=== PATIENT | female | born 1995 | race Caucasian/White ===

== ENCOUNTER 2017-08-02 08:52 | Emergency (ER) | payer OTHER ==
--- NOTE | 2017-08-02 10:18 | RAD ---
INDICATION: Left knee pain after a fall COMPARISON: None TECHNIQUE: 4 view radiograph of the left knee. FINDINGS: The visualized bones are well-corticated and properly aligned. The joint spaces are properly maintained. There is a small intra-articular joint effusion seen on the lateral view radiograph. There is no acute fracture, dislocation or other focal bony abnormality. IMPRESSION: Small intra-articular left knee joint effusion without radiographically apparent bony abnormality. If the patient's symptoms persist, follow-up imaging is recommended.
[2017-08-02 11:24] VITALS: BP 120/70
--- NOTE | 2017-08-03 08:51 | ED ---
Lower Extremity - HPI Summary HPI Summary: Patient presents to the ED 1 day s/p left knee injury. States she fell off a raised object by 2 ft, but unsure how she fell and injured the knee. Denies other injuries including hitting her head or LOC. Endorses medial knee pain felt like a muscle strain, 8/10, worse with movement and better with rest. Worse with flexion, better in slightly flexed position. Denies other injuries. - History of Current Complaint Chief Complaint: EDExtremityLower Stated Complaint: FALL/LEFT KNEE INJURY Time Seen by Provider: 08/02/17 09:05 Hx Obtained From: Patient Mechanism Of Injury: Twisted Onset of Pain: Hours Onset/Duration: Hours Severity Initially: Moderate Severity Currently: Moderate Pain Intensity: 2 Pain Scale Used: 0-10 Numeric Timing: Constant Location: Is Discrete @ - left medial knee Associated Signs And Symptoms: Positive: Swelling Aggravating Factor(s): Standing, Ambulation Alleviating Factor(s): Rest Able to Bear Weight: No - Risk Factors Gout Risk Factors: Negative DVT Risk Factors: Negative Septic Arthritis Risk Factor: Negative PMH/Surg Hx/FS Hx/Imm Hx Previously Healthy: Yes - Immunization History Hx Pertussis Vaccination: No Immunizations Up to Date: Unable to Obtain/Confirm Infectious Disease History: No Infectious Disease History: Denies: Traveled Outside the [place] in Last 30 Days - Social History Occupation: Employed Part-time Lives: Dormitory/Roommates Alcohol Use: None Hx Substance Use: No Substance Use Type: Reports: None Hx Tobacco Use: No Smoking Status (MU): Never Smoked Tobacco Review of Systems Constitutional: Negative Negative: Fever, Chills, Fatigue Eyes: Negative Cardiovascular: Negative Gastrointestinal: Negative Genitourinary: Negative Positive: no symptoms reported, see HPI Positive: Arthralgia Skin: Negative Neurological: Negative All Other Systems Reviewed And Are Negative: Yes Physical Exam Triage Information Reviewed: Yes Vital Signs On Initial Exam: Initial Vitals Temp Pulse Resp BP Pulse Ox 98.9 F 102 20 121/79 98 08/02/17 09:24 08/02/17 09:24 08/02/17 09:24 08/02/17 09:24 08/02/17 09:24 Vital Signs Reviewed: Yes Appearance: Positive: Well-Appearing, Well-Nourished Skin: Positive: Warm, Skin Color Reflects Adequate Perfusion Head/Face: Positive: Normal Head/Face Inspection Eyes: Positive: EOMI, QUINTON, Conjunctiva Clear Neck: Positive: Supple, No Lymphadenopathy Respiratory/Lung Sounds: Positive: Clear to Auscultation, Breath Sounds Present Cardiovascular: Positive: Normal, RRR Musculoskeletal: Positive: Other - Thorough physical exam was performed, focusing on knee special tests. Pain on palpation over medial aspect and superior aspect of knee with mild amount of effusion. Due to patient pain around injury, physical exam was limited. Valgus and varus force without pain. No posterior sag sign, -posterior drawer test, - anterior drawer test. Quadriceps active test negative. Mcmurrys test not performed d/t patients instability. No laxity in the joint noted. No temperature change or pallor noted bilaterally. No ecchymosis noted over knee. No lesion or disruption of skin is seen. Unable to bear weight. Pulses intact bilaterally. Neurological: Positive: Speech Normal Psychiatric: Positive: Normal Diagnostics - Vital Signs Vital Signs Temp Pulse Resp BP Pulse Ox 08/02/17 11:23 98.8 F 86 20 120/70 99 08/02/17 09:24 98.9 F 102 20 121/79 98 - Laboratory Lab Statement: Any lab studies that have been ordered have been reviewed, and results considered in the medical decision making process. Lower Extremity Course/Dx - Course Course Of Treatment: Patient presents to the ED 1 day s/p left knee injury. States she fell off a raised object by 2 ft, but unsure how she fell and injured the knee. Denies other injuries including hitting her head or LOC. IMPRESSION: Small intra-articular left knee joint effusion without radiographically. apparent bony abnormality. Remains unable to bear weight. Patient sent to imaging. Soft tissue swelling noted over the knee. Knee immobilizer given. Follow up recommended and patient states her mother had just called to [facility] and will be seeing Dr Chacon on Saturday at 2pm. Crutches given. Encouraged Ibuprofen 600mg three times daily with meals for pain. Return precautions given. Educated patient regarding knee injuries and healing time and the possibility of further evaluation and imaging as orthopedist sees fit. If the patient's symptoms persist, follow-up imaging is recommended. - Diagnoses Provider Diagnoses: Knee pain, acute Discharge - Discharge Plan Condition: Stable Disposition: HOME Patient Education Materials: ACL Injury (ED), Knee Immobilizer (ED) Referrals: [facility] - Adal VARELA [Primary Care Provider] - Additional Instructions: I have given you information on ACL injuries - however, like discussed, it is unsure if you have a ligament tear or a muscle strain I recommend following up with ortho. Keep the immobilizer on until follow up Ibuprofen 600mg three times daily Elevate ICE
== END 2017-08-02 11:23 | disposition home or self-care (01) ==
LOC: ED 08:52
DX: M25.562 Pain in left knee (principal); W19.XXXA Unspecified fall, initial encounter; Y92.9 Unspecified place or not applicable
CPT/HCPCS: 99282